=== PATIENT | male | born 1990 | race Caucasian/White ===

== ENCOUNTER 2025-06-18 14:07 | Emergency (ER) | payer OTHER ==
[2025-06-18 14:46] LABS: BILIRUBIN Negative (Negative); BLOOD Negative (Negative); CLARITY Clear (Clear); COLOR Yellow (Yellow); KETONE 1+ (Negative); LEUKO ESTERASE Negative (Negative); NITRITE Negative (Negative); PH 6.5 (4.5-8.0); SPECIFIC GRAVITY 1.010 (1.001-1.030); UROBILINOGEN 1.0 E.U./dl (0.0-1.0)
[2025-06-18 14:54] LABS: URINE AMPHETAMINES Negative (1000ng/ml); URINE BARBITURATES Negative (200ng/ml); URINE BENZODIAZEPINES Negative (200ng/ml); URINE CANNABINOIDS (THC) Negative (50ng/ml); URINE COCAINE Negative (300ng/ml); URINE METHADONE Negative (300ng/ml); URINE OPIATES Negative (300ng/ml); URINE PHENCYCLIDINE Negative (25ng/ml)
[2025-06-18 14:56] LABS: BASO # 0.1 10*3/uL (0.0-0.1); BASO % 0.6 % (0.0-1.0); EOS # 0.1 10*3/uL (0.0-0.4); EOS % 0.8 % (1.0-4.0); MEAN CELL VOLUME 91.8 fl (80.0-94.0); MEAN CORPUSCULAR HGB 31.2 pg (27.0-31.0); MEAN PLATELET VOLUME 9.2 fl (9.6-12.3); MONO # 0.5 10*3/uL (0.1-1.0); MONO % 6.8 % (3.0-9.0); NEUT # 4.6 10*3/uL (2.3-7.9); NEUT % 59.5 % (47.0-73.0); NUCLEATED RED BLOOD CELL 0.0 % (0.0-0.0); NUCLEATED RED BLOOD CELL 0.0 10*3/uL (0.0-0.0); PLATELET COUNT AUTOMATED 224 10*3/uL (130-400); RED CELL DISTRI WIDTH 12.9 % (0-14.5)
[2025-06-18] MEDS ORDERED: FLUOXETINE HYDR20 M1 PO (15:07)
[2025-06-18] MEDS ORDERED: INVEGA SUSTENN234 MG IM (15:07)
[2025-06-18] MEDS ORDERED: DIVALPROEX SOD500 M1 PO (15:07)
[2025-06-18 15:10] LABS: RBC 0-2 rbc/hpf (0-2); WBC 0-2 wbc/hpf (0-5)
[2025-06-18 15:11] LABS: BACTERIA TRACE
[2025-06-18 15:22] LABS: ETHYL ALCOHOL 3.2 mg/dl (<3); SGPT/ALT 54 U/L (5-49)
[2025-06-18] MEDS ORDERED: HALOPERIDOL10 MG PO (15:26)
[2025-06-18] MEDS ORDERED: HYDROXYZINE PAM50 MG PO (15:26)
[2025-06-18] MEDS ORDERED: TRAZODONE50 MG PO (15:28)
[2025-06-18 15:44] LABS: BUN < 5 mg/dl (9-23)
== END 2025-06-18 19:37 ==
LOC: ED 14:07
PROVIDERS: Emergency Medicine
DX: F25.0 Schizoaffective disorder, bipolar type (principal); F17.210 Nicotine dependence, cigarettes, uncomplicated; Z88.8 Allergy status to other drugs, medicaments and biological substances; Z79.899 Other long term (current) drug therapy